=== PATIENT | male | born 1980 | race Caucasian/White ===

== ENCOUNTER 2022-07-06 18:03 | Emergency (ER) | payer SELFPAY ==
[~2022-07-06] VITALS: Ht 165.1 cm; Wt 72.7 kg
[2022-07-06 18:10] VITALS: BP 131/59
[2022-07-06 18:31] VITALS: BP 124/87
[2022-07-06 18:35] LABS: HEMATOCRIT 45.5 % (39.0-50.0); HEMOGLOBIN 15.4 g/dl (14.0-18.0); IMMATURE GRANULOCYTES 0.2 % (0.0-5.0); MEAN CELL VOLUME 88.3 fL CALC (80.0-100.0); MEAN CORPUSCULAR HGB 29.9 pG CALC (26.0-32.0); MEAN CORPUSCULAR HGB CONC 33.8 g/dL CAL (32.0-36.0); NEUT# 4.1 thou/uL (1.82-7.42); RED BLOOD COUNT 5.15 mill/uL (4.70-6.10); RED CELL DISTRI WIDTH 11.8 % (11.5-15.5)
[2022-07-06 18:51] LABS: ALBUMIN 4.3 g/dL (3.2-5.0); ALKALINE PHOSPHATASE 100 u/l (38-126); ANION GAP 15 (6-22 (CALC)); BILIRUBIN, TOTAL 0.7 mg/dL (0.0-1.4); BUN 29 mg/dL (9-20); BUN/CREATININE RATIO 24 (12-20 (CALC)); CARBON DIOXIDE 20 mmol/l (22-30); CHLORIDE 105 mmol/l (95-108); CREATININE 1.2 mg/dL (0.7-1.3); GFR FOR AFR.AMER. > 60 ML/MIN (>=60 (CALC)); GFR OTHER RACES > 60 ML/MIN (>=60 (CALC)); LIPASE 95 u/l (23-300); POTASSIUM 3.8 mmol/l (3.5-5.1); SGOT/AST 40 u/l (17-59); SODIUM 137 mmol/l (137-146); TOTAL PROTEIN 8.3 g/dL (6.3-8.2)
[2022-07-06 20:09] VITALS: BP 131/68
[2022-07-06 20:30] VITALS: BP 131/71
[2022-07-06 21:00] VITALS: BP 133/78
[2022-07-06] MEDS ORDERED: LORTAB 1010 MG PO (21:18)
[2022-07-06 23:47] VITALS: BP 125/62
== END 2022-07-07 01:43 | disposition short-term general hospital (02) | DRG 563 ==
LOC: ED 18:03 → EDBD 18:03 → ED 19:23
PROVIDERS: Family Medicine
PROC: 2W3DX1Z Immobilization of Left Lower Arm using Splint (ICD-10-PCS; principal; 2022-07-06)
PROC: 0HQFXZZ Repair Right Hand Skin, External Approach (ICD-10-PCS; 2022-07-06)
DX: S52.502A Unspecified fracture of the lower end of left radius, initial encounter for closed fracture (principal); S52.602A Unspecified fracture of lower end of left ulna, initial encounter for closed fracture; S80.812A Abrasion, left lower leg, initial encounter; S61.216A Laceration without foreign body of right little finger without damage to nail, initial encounter; W14.XXXA Fall from tree, initial encounter; Y92.007 Garden or yard of unspecified non-institutional (private) residence as the place of occurrence of the external cause; Z20.822 Contact with and (suspected) exposure to COVID-19
CPT/HCPCS: Q9967